=== PATIENT | female | born 1945 | race Two or more races ===

== ENCOUNTER 2020-01-17 13:00 | Inpatient (IN) | payer OTHER ==
[~2020-01-17] VITALS: Ht 149.9 cm; Wt 72.6 kg
[2020-02-06] MEDS ORDERED: LIPITOR20 MG PO (14:39)
[2020-02-06] MEDS ORDERED: TOPROL XL100 M1 PO (14:39)
[2020-02-06] MEDS ORDERED: PLAVIX75 MG PO (14:39)
[2020-02-14] MEDS ORDERED: ACETAMINOPHEN500 M2 PO (13:36)
[2020-02-14] MEDS ORDERED: INTESTINEX680 M1 PO (13:36)
[2020-02-14] MEDS ORDERED: NEURONTIN300 MG PO (13:36)
[2020-02-14] MEDS ORDERED: ASPIR 8181 MG PO (13:38)
== END 2020-02-14 14:05 | disposition home or self-care (01) | DRG 331 ==
LOC: SURH 02-12 05:37 → O/R 02-12 05:37 → SURG 02-12 07:00 → SURH 02-12 11:36
PROVIDERS: ADMIT Surgery
PROC: 07BC4ZX Excision of Pelvis Lymphatic, Percutaneous Endoscopic Approach, Diagnostic (ICD-10-PCS; 2020-02-12)
PROC: 0DTF4ZZ Resection of Right Large Intestine, Percutaneous Endoscopic Approach (ICD-10-PCS; principal; 2020-02-12 07:00)
DX: C18.2 Malignant neoplasm of ascending colon (principal); R59.0 Localized enlarged lymph nodes; I10 Essential (primary) hypertension

== ENCOUNTER 2020-02-17 23:40 | Inpatient (IN) | payer OTHER ==
[~2020-02-17] VITALS: Ht 149.9 cm; Wt 72.6 kg
[~2020-02-17 23:40] MED LIST: ACETAMINOPHEN500 M2 PO; ASPIR 8181 MG PO; INTESTINEX680 M1 PO; LIPITOR20 MG PO; NEURONTIN300 MG PO; PLAVIX75 MG PO; TOPROL XL100 M1 PO
--- NOTE | 2020-02-17 23:50 | NUR ---
PT ALERTA Y ORIENTADA X3 ESFERAS EN COMPANIA DE HIJA EN [place] DE [place]. REFIRE EL PASADO 17 DE JANZO LE REALIZAN PAULA LAPAROSCOPIA PARA REMOCION DE PARTE DEL COLON, LE LENO DE CARLOS EL JUEVES 19 DE JANZO. EL GEGE DE HOY PRESENTA DOLOR ABDOMINAL, GASES Y VOMITOS. REFIERE MAI PODIDO EVACUAR SIN PROBLEMA.
[2020-02-18] MEDS ORDERED: INDAPAMIDE2.5 MG
[2020-02-18] MEDS ORDERED: VASOTEC20 M1 (00:01)
--- NOTE | 2020-02-18 00:33 | NUR ---
SE ORIENTA A PTE SOBRE PROCESO DE VENOPUNCION, CARY DE MUESTRAS, ADMINISTRACION DE MED IM, PTE REFIERE ENTENDER INF ENOC POR RN DE ROSEO. AREA DE VENOPUNCION SE KYRA BRENDA DE EDEMA Y ENROJECIMIENTO EN ESPERA DE ESTUDIO A REALIZAR X RAY.
--- NOTE | 2020-02-18 01:26 | NUR ---
SE NOTIFICA CT A MS.SERENE A LA 1:24AM.
--- NOTE | 2020-02-18 07:28 | NUR ---
SE RECIBE PACIENTE ALERTA ACOMPANANDA D EFAMILIAR EN CONSULTA CONEL SE OBSERVA PACIENTE TRANQUILA CON NGT L+ PATENTE CON SUCCION INTERMITENTE , IVF PATENTE LIBR EDEMA SE MANTIEIEN OBSERVACION POR CAMBIOS EN BAL CONDICON.
== END 2020-02-22 12:15 | disposition home or self-care (01) | DRG 389 ==
LOC: ER 23:40 → SURH 02-18 07:42
PROVIDERS: ADMIT Surgery
PROC: BW21ZZZ Computerized Tomography (CT Scan) of Abdomen and Pelvis (ICD-10-PCS; principal; 2020-02-18)
PROC: 0DH67UZ Insertion of Feeding Device into Stomach, Via Natural or Artificial Opening (ICD-10-PCS; 2020-02-18)
PROC: 3E0G76Z Introduction of Nutritional Substance into Upper GI, Via Natural or Artificial Opening (ICD-10-PCS; 2020-02-18)
DX: K56.690 Other partial intestinal obstruction (principal); C18.3 Malignant neoplasm of hepatic flexure; I10 Essential (primary) hypertension

== ENCOUNTER 2021-05-18 05:23 | Day surgery (SDC) | payer OTHER ==
[~2021-05-18 05:23] MED LIST changes: +INDAPAMIDE2.5 MG; +VASOTEC20 M1
== END 2021-05-18 10:20 | disposition home or self-care (01) ==
LOC: CIR.AMB 05:23 → AMB-ENDOS 05:23 → CIR.AMB 13:15
PROVIDERS: ATTEND Surgery
DX: D12.5 Benign neoplasm of sigmoid colon (principal); Z20.822 Contact with and (suspected) exposure to COVID-19